=== PATIENT | male | born 1930 | race Caucasian/White ===

== ENCOUNTER 2019-01-16 19:25 | Emergency (ER) | payer OTHER ==
[2019-01-16] MEDS ORDERED: LIDOCAINE 2% MPF 5 ML VIAL ONE (19:42)
[2019-01-16] MEDS ORDERED: LIDOCAINE 1.5% W/EPI AMP 5 ML ONE (19:43)
[2019-01-16] MEDS ORDERED: FENTANYL CITR 100 MCG/2 ML ONE (19:45)
[2019-01-16 19:55] LABS: Absolute Lymphocytes (CBC) 1.6 K/uL (0.7-4.9); Absolute Monocytes 0.9 K/uL (0.1-1.3); Absolute Neutrophil 7.5 K/uL (1.8-8.0); Eosinophils % 1.5 % (0-4.4); Hematocrit 44.4 % (39.6-49.0); Lymphocytes % 15.4 % (15.3-44.8); MPV 9.3 fL (7.6-11.3); Monocytes % 8.6 % (3.3-12.3); RBC Red Blood Cell Count 4.85 M/uL (4.33-5.43)
[2019-01-16] MEDS ORDERED: ONDANSETRON 4 MG/2 ML VIAL ONE (19:58)
[2019-01-16 20:10] LABS: Potassium 4.1 mmol/L (3.5-5.1)
--- NOTE | 2019-01-16 20:24 | RAD REPORT ---
EXAM DESCRIPTION: CT - Head C Spine Cap W Con - 01/16/2019 8:10 pm CLINICAL HISTORY: Trauma, head and neck injury. Chest, abdomen and pelvis pain. fall, blood thinner, head max/fac COMPARISON: CT DISSECTION W WO CONTRAST dated 11/16/2012 TECHNIQUE: CT head without contrast. CT cervical spine without contrast with coronal and sagittal reformatted images. CT chest, abdomen and pelvis with IV contrast (approximately 100 mL nonionic IV contrast) with solis l and sagittal reformatted images of the spine. All CT scans are performed using dose optimization technique as appropriate and may include automated exposure control or mA/KV adjustment according to patient size. FINDINGS: CT HEAD WITHOUT CONTRAST: No intracranial hemorrhage, hydrocephalus or extra-axial fluid collection. Mild left periorbital soft tissue swelling. No areas of brain edema or midline shift. The paranasal sinuses and mastoids are clear. The calvarium is intact. CT CERVICAL SPINE WITHOUT CONTRAST: No fracture or subluxation. Moderate cervical degenerative change. The prevertebral soft tissues are normal in thickness. CT CHEST, ABDOMEN, PELVIS WITH CONTRAST: The lungs are clear.No pneumothorax or pericardial/pleural fluid. No evidence of intra-abdominal visceral injury, free fluid or free air. Atherosclerosis of the aorta and iliac vessels noted. Significant prostatic megaly. No fractures. IMPRESSION: Negative for acute traumatic findings.
--- NOTE | 2019-01-16 20:28 | RAD REPORT ---
EXAM DESCRIPTION: CT - FC CLINICAL HISTORY: FRACTURE Fall, trauma, facial pain COMPARISON: No comparisons TECHNIQUE: Axial 2 mm thick images of the face were obtained with sagittal and coronal reconstructio n images. All CT scans are performed using dose optimization technique as appropriate and may include automated exposure control or mA/KV adjustment according to patient size. FINDINGS: Soft tissue injuries are seen along the left aspect of the mandible, maxilla and left rayna orbital region. No acute facial bone fracture is seen.The mandible is intact. The globes and orbital contents are grossly unremarkable.The paranasal sinuses and mastoids are clear . IMPRESSION: Negative for facial bone fracture. Left-sided facial soft tissue injury noted as detailed.
--- NOTE | 2019-01-16 21:41 | ER ---
Nurse's Notes [facility] Name: Baldemar Key Jr Age: 88 yrs Sex: Male : 1930 Arrival Date: 01/16/2019 Time: 19:30 Bed 7 Private MD: Diagnosis: Fall;Left facial laceration;Facial contusion Presentation: 01/16 19:20 Presenting complaint: EMS states: that pt was walking outside and fell, hitting face on fc the curb. Has laceration to left upper lip which is uncontrolled and small lac under left eye. Unknown LOC. Care prior to arrival: Bleeding of injury uncontrolled. Mechanism of Injury: Fall from standing position. Trauma event details: Injury occurred in the [facility], Injury occurred: at home. Injury occurred: January 16, 2019. 19:20 Acuity: MEDARDO 2 19:20 Method Of Arrival: EMS: [facility] 19:20 Transition of care: patient was not received from another setting of care. Onset of symptoms was January 16, 2019. Risk Assessment: Do you want to hurt yourself or someone else? Patient reports no desire to harm self or others. Initial Sepsis Screen: Does the patient meet any 2 criteria? No. Patient's initial sepsis screen is negative. Does the patient have a suspected source of infection? No. Patient's initial sepsis screen is negative. Trauma Activation: Alert Physician: ED Physician; Name: Dr Randolph; Notified At: 19:19; Arrived At: 19:19 Physician: General Surgeon; Name: ; Notified At: 19:19; Arrived At: Physician: Radiology; Name: ; Notified At: 19:19; Arrived At: Physician: Respiratory; Name: Brenna; Notified At: 19:19; Arrived At: 19:19 Physician: Lab; Name: ; Notified At: 19:19; Arrived At: Historical: - Allergies: 19:44 No Known Allergies; fc - Home Meds: 19:44 Folbic 2.5-25-2 mg oral tab 1 tab 2 times per day [Active]; donepezil 10 mg oral tab 1 fc tab twice a day [Active]; memantine oral 28 mg oral 1 cap once daily [Active]; Plavix 75 mg Oral tab 1 tab once daily [Active]; Coreg 6.25 mg Oral tab 1 tab 2 times per day [Active]; levothyroxine 75 mcg tab 1 tab once daily [Active]; vitamin E 400 unit Oral cap daily [Active]; rosuvastatin 10 mg oral tab 1 tab once daily [Active]; - PMHx: 19:44 Hypertension; Dementia; High Cholesterol; Hypothyroidism; enlarged prostate; deaf; fc - PSHx: 19:44 Heart stents; fc - Immunization history: Last tetanus immunization: < 5 years ago. - Social history:: Smoking status: Patient/guardian denies using tobacco, Patient/guardian denies using alcohol, street drugs. - Ebola Screening: : Patient negative for fever greater than or equal to 101.5 degrees Fahrenheit, and additional compatible Ebola Virus Disease symptoms Patient denies exposure to infectious person Patient denies travel to an Ebola-affected area in the 21 days before illness onset. Screenin:20 Abuse screen: Denies threats or abuse. Tuberculosis screening: No symptoms or risk fc factors identified. 19:20 Nutritional screening: No deficits noted. Fall Risk None identified. fc Primary Survey: 19:20 NO uncontrolled hemorrhage observed. Breathing/Chest: Respiratory pattern: regular, ea Respiratory effort: spontaneous, unlabored. Circulation: Skin color: pink. Disability Alert. Exposure/Environment: All clothing and personal items were removed. There is evidence of uncontrolled external hemorrhage. Provider notified immediately. Methods to control bleeding applied. Obvious injury(ies) are noted at this time: avulsion to left side of upper lip A warming method has been applied: A warm blanket has been provided to the patient. 20:30 Reassessment Airway Airway Patent Breathing/Chest Respiratory pattern Regular ea Respiratory effort Spontaneous Unlabored Chest inspection Symmetrical Circulation Color [place] Temperature Warm Disability Alert. Assessment: 19:20 General: Appears uncomfortable, Behavior is calm, cooperative, appropriate for age. ea Pain: Complains of pain in mouth. Neuro: Level of Consciousness is awake, alert, obeys commands, Oriented to person, place, time, situation. Cardiovascular: Patient's skin is warm and dry. Respiratory: Airway is patent Respiratory effort is even, unlabored, Respiratory pattern is regular, symmetrical. Injury Description: Avulsion sustained to mouth is partial. 20:30 Reassessment: Patient and/or family updated on plan of care and expected duration. Pain ea level reassessed. Patient is alert, oriented x 3, equal unlabored respirations, skin warm/dry/pink. 21:30 Reassessment: Patient and/or family updated on plan of care and expected duration. Pain ea level reassessed. Patient is alert, oriented x 3, equal unlabored respirations, skin warm/dry/pink. Provider at bedside repairing laceration. Pt tolerating well. Vital Signs: 19:20 BP 180 / 83; Pulse 69; Resp 18; Temp 98.2(O); Pulse Ox 98% on R/A; Weight 72.57 kg (R); fc Height 6 ft. 0 in. (182.88 cm) (R); Pain 0/10; 20:10 BP 121 / 84; Pulse 80; Resp 18; Pulse Ox 99% on R/A; ea 21:00 BP 139 / 61; Pulse 73; Resp 18; Pulse Ox 96% on R/A; ea 21:30 BP 125 / 73; Pulse 75; Resp 18; Pulse Ox 97% on R/A; ea 22:21 BP 103 / 67; Pulse 72; Resp 18; Pulse Ox 95% on R/A; ea 23:01 BP 103 / 67; Pulse 72; Resp 17 S; Pulse Ox 95% on R/A; jd3 19:20 Body Mass Index 21.70 (72.57 kg, 182.88 cm) fc [place] Coma Score: 19:20 Eye Response: spontaneous(4). Verbal Response: oriented(5). Motor Response: obeys fc commands(6). Total: 15. Trauma Score (Adult): 19:20 Eye Response: spontaneous(1); Verbal Response: oriented(1); Motor Response: obeys fc commands(2); Systolic BP: > 89 mm Hg(4); Respiratory Rate: 10 to 29 per min(4); Eris Score: 15; Trauma Score: 12 ED Course: 19:20 Patient has correct armband on for positive identification. Bed in low position. Call fc light in reach. Side rails up X2. 19:20 Arm band placed on Patient placed in an exam room, on a stretcher. fc 19:20 Patient maintains SpO2 saturation greater than 95% on room air. Thermoregulation: warm ea blanket given to patient. 19:30 Patient arrived in ED. fc 19:34 Pierre Randolph MD is Attending Physician. ps1 19:38 Luba Hillman, RN is Primary Nurse. ea 19:38 Triage completed. fc 20:09 CT Traumagram (Head C Spine CAP W Con) In Process Unspecified. EDMS 20:09 CT Maxillofacial W/cont In Process Unspecified. EDMS 22:58 Assist provider with laceration repair on philtrum and upper vermilion border. IV jd3 discontinued, intact, bleeding controlled, No redness/swelling at site. Pressure dressing applied. Administered Medications: 19:38 Drug: fentaNYL (PF) 50 mcg Route: IVP; Site: right antecubital; ea 22:57 Follow up: Response: No adverse reaction jd3 19:40 Drug: Zofran 4 mg Route: IVP; Site: right antecubital; ea 22:57 Follow up: Response: No adverse reaction jd3 Intake: 23:00 PO: 0ml; Total: 0ml. jd3 Output: 23:00 Urine: 0ml; Total: 0ml. jd3 Outcome: 21:40 Discharge ordered by . ps1 22:59 Discharged to home via wheelchair, with family. jd3 22:59 Condition: stable 22:59 Discharge instructions given to patient, family, Instructed on discharge instructions, follow up and referral plans. medication usage, Demonstrated understanding of instructions, follow-up care, medications, Prescriptions given X 3. 22:59 Patient's length of stay in the Emergency Department was greater than 2 hours. diagnosticsPatient's length of stay extended due to 23:01 Patient left the ED. jd3 Signatures: Dispatcher [employer] EDDC Lilia Nava RN WANG Luba Hillman, RN Rony Jackson ea RN Pierre Chapa MD MD ps1
--- NOTE | 2019-01-16 21:41 | EDPHYS ---
Physician Documentation [facility] Name: Baldemar Key Jr Age: 88 yrs Sex: Male : 1930 Arrival Date: 01/16/2019 Time: 19:30 Bed 7 Private MD: ED Physician Pierre Randolph HPI: 01/16 19:42 This 88 yrs old Male presents to ER via EMS with complaints of Fall Injury. ps1 19:42 Patient BIBEMS 2/2 facial trauma. Unknown LOC but patient states that he remembers the ps1 dog tripping him up. Believed to have fallen down a couple of stairs outside. Has significant facial trauma with arteriolar bleeding from laceration of upper lip. On plavix. Contusion to left eye and periorbital area. Pain rated as moderate. . Historical: - Allergies: 19:44 No Known Allergies; fc - Home Meds: 19:44 Folbic 2.5-25-2 mg oral tab 1 tab 2 times per day [Active]; donepezil 10 mg oral tab 1 fc tab twice a day [Active]; memantine oral 28 mg oral 1 cap once daily [Active]; Plavix 75 mg Oral tab 1 tab once daily [Active]; Coreg 6.25 mg Oral tab 1 tab 2 times per day [Active]; levothyroxine 75 mcg tab 1 tab once daily [Active]; vitamin E 400 unit Oral cap daily [Active]; rosuvastatin 10 mg oral tab 1 tab once daily [Active]; - PMHx: 19:44 Hypertension; Dementia; High Cholesterol; Hypothyroidism; enlarged prostate; deaf; fc - PSHx: 19:44 Heart stents; fc - Immunization history: Last tetanus immunization: < 5 years ago. - Social history:: Smoking status: Patient/guardian denies using tobacco, Patient/guardian denies using alcohol, street drugs. - Ebola Screening: : Patient negative for fever greater than or equal to 101.5 degrees Fahrenheit, and additional compatible Ebola Virus Disease symptoms Patient denies exposure to infectious person Patient denies travel to an Ebola-affected area in the 21 days before illness onset. ROS: 19:42 Constitutional: Negative for fever, chills, and weight loss, Eyes: Negative for injury, ps1 pain, redness, and discharge, Cardiovascular: Negative for chest pain, palpitations, and edema, Respiratory: Negative for shortness of breath, cough, wheezing, and pleuritic chest pain, Abdomen/GI: Negative for abdominal pain, nausea, vomiting, diarrhea, and constipation, MS/Extremity: Negative for injury and deformity, Neuro: Negative for headache, weakness, numbness, tingling, and seizure, Psych: Negative for depression, anxiety, suicide ideation, homicidal ideation, and hallucinations. 19:42 ENT: Positive for injury or acute deformity, contusion, laceration, of the left cheek, left eye and mouth. Exam: 19:42 Constitutional: This is a well developed, well nourished patient who is awake, alert, ps1 and in no acute distress. Cardiovascular: Regular rate and rhythm. No gallops, murmurs, or rubs. Normal PMI, no JVD. No pulse deficits. Respiratory: Lungs have equal breath sounds bilaterally, clear to auscultation and percussion. No rales, rhonchi or wheezes noted. No increased work of breathing, no retractions or nasal flaring. Abdomen/GI: Soft, non-tender, with normal bowel sounds. No distension or tympany. No guarding or rebound. No evidence of tenderness throughout. Male : Normal genitalia with no discharge or lesions. Skin: Warm, dry with normal turgor. Normal color with no rashes, no lesions, and no evidence of cellulitis. MS/ Extremity: Pulses equal, no cyanosis. Neurovascular intact. Full, normal range of motion. Neuro: Awake and alert, GCS 15, oriented to person, place, time, and situation. Cranial nerves II-XII grossly intact. Sensory grossly intact. Psych: Awake, alert, with orientation to person, place and time. Behavior, mood, and affect are within normal limits. 19:42 Head/face: Noted is no obvious of injury or deformity except ecchymosis, that is moderate, of the left cheek and left eye, a laceration(s), that is deep, 4 cm(s), of the mouth. Vital Signs: 19:20 BP 180 / 83; Pulse 69; Resp 18; Temp 98.2(O); Pulse Ox 98% on R/A; Weight 72.57 kg (R); fc Height 6 ft. 0 in. (182.88 cm) (R); Pain 0/10; 20:10 BP 121 / 84; Pulse 80; Resp 18; Pulse Ox 99% on R/A; ea 21:00 BP 139 / 61; Pulse 73; Resp 18; Pulse Ox 96% on R/A; ea 21:30 BP 125 / 73; Pulse 75; Resp 18; Pulse Ox 97% on R/A; ea 22:21 BP 103 / 67; Pulse 72; Resp 18; Pulse Ox 95% on R/A; ea 23:01 BP 103 / 67; Pulse 72; Resp 17 S; Pulse Ox 95% on R/A; jd3 19:20 Body Mass Index 21.70 (72.57 kg, 182.88 cm) fc [place] Coma Score: 19:20 Eye Response: spontaneous(4). Verbal Response: oriented(5). Motor Response: obeys fc commands(6). Total: 15. Trauma Score (Adult): 19:20 Eye Response: spontaneous(1); Verbal Response: oriented(1); Motor Response: obeys fc commands(2); Systolic BP: > 89 mm Hg(4); Respiratory Rate: 10 to 29 per min(4); Eris Score: 15; Trauma Score: 12 MDM: 19:53 Patient medically screened. ps1 01/16 19:37 Order name: Basic Metabolic Panel; Complete Time: 20:18 ps1 01/16 19:37 Order name: CBC with Diff; Complete Time: 20:18 ps1 01/16 19:37 Order name: CT Traumagram (Head C Spine CAP W Con); Complete Time: 21:08 ps1 01/16 19:37 Order name: Creatinine for Radiology; Complete Time: 20:18 ps1 01/16 19:37 Order name: Type And Screen; Complete Time: 21:08 ps1 01/16 19:37 Order name: CT Maxillofacial W/cont; Complete Time: 21:08 ps1 01/16 19:37 Order name: Labs collected and sent; Complete Time: 20:15 ps1 Administered Medications: 19:38 Drug: fentaNYL (PF) 50 mcg Route: IVP; Site: right antecubital; ea 22:57 Follow up: Response: No adverse reaction jd3 19:40 Drug: Zofran 4 mg Route: IVP; Site: right antecubital; ea 22:57 Follow up: Response: No adverse reaction jd3 Disposition: 01/16/19 21:40 Discharged to Home. Impression: Fall, Left facial laceration, Facial contusion. - Condition is Stable. - Discharge Instructions: Facial or Scalp Contusion, Facial Laceration. - Prescriptions for Anaprox DS 550 mg Oral Tablet - take 1 tablet by ORAL route every 12 hours As needed; 20 tablet. Robaxin 500 mg Oral Tablet - take 2 tablet by ORAL route every 6 hours As needed; 40 tablet. Medrol (Jose) 4 mg Oral Tablets, Dose Pack - take 1 tablet by ORAL route as directed - follow package instructions; 1 packet. - Medication Reconciliation Form, Thank You Letter, Antibiotic Education, Prescription Opioid Use form. - Follow up: Private Physician; When: 7 - 10 days; Reason: Staple/Suture removal. Follow up: Emergency Department; When: As needed; Reason: Worsening of condition. - Problem is new. - Symptoms have improved. Signatures: Dispatcher [employer] EDMS Lilia Nava RN RN Luba Gipson RN RN ea Davies, Jonathon, RN RN jd3 Pierre Randolph MD MD ps1 Corrections: (The following items were deleted from the chart) 23:01 21:40 01/16/2019 21:40 Discharged to Home. Impression: Fall; Left facial laceration; jd3 Facial contusion. Condition is Stable. Forms are Medication Reconciliation Form, Thank You Letter, Antibiotic Education, Prescription Opioid Use. Follow up: Private Physician; When: 7 - 10 days; Reason: Staple/Suture removal. Follow up: Emergency Department; When: As needed; Reason: Worsening of condition. Problem is new. Symptoms have improved. ps1
[2019-01-16] MEDS ORDERED: HYDROCODONE/APAP 7.5/325 MG TAB ONE (22:28)
[2019-01-16 23:10] VITALS: BP 103/67; O2SAT 95
== END 2019-01-16 23:01 | disposition home or self-care (01) ==
LOC: ER 19:25
PROC: 0CQ0XZZ Repair Upper Lip, External Approach (ICD-10-PCS; principal; 2019-01-16)
DX: S01.511A Laceration without foreign body of lip, initial encounter (principal); S00.83XA Contusion of other part of head, initial encounter; I10 Essential (primary) hypertension; E78.00 Pure hypercholesterolemia, unspecified; E03.9 Hypothyroidism, unspecified; F03.90 Unspecified dementia, unspecified severity, without behavioral disturbance, psychotic disturbance, mood disturbance, and anxiety; Z95.818 Presence of other cardiac implants and grafts; Z79.01 Long term (current) use of anticoagulants; W01.0XXA Fall on same level from slipping, tripping and stumbling without subsequent striking against object, initial encounter; Y93.01 Activity, walking, marching and hiking; Y92.89 Other specified places as the place of occurrence of the external cause
CPT/HCPCS: 85025; 80048; 36415; 86900; 86850; 86901; 70450; 72125; 71260; 70487; 74177; 96375; 96374; 99284; 12013; Q9967; J3010; J2001; J2405

== ENCOUNTER 2019-01-18 12:27 | Emergency (ER) | payer OTHER ==
--- NOTE | 2019-01-18 14:09 | EDPHYS ---
Physician Documentation [facility] Name: Baldemar Key Jr Age: 88 yrs Sex: Male : 1930 Arrival Date: 01/18/2019 Time: 12:29 Bed 12 Private MD: Scarlett Payan C ED Physician Troy Ellison HPI: 01/18 14:04 This 88 yrs old Male presents to ER via Ambulatory with complaints of Suture jody Recheck. 14:04 Patient presents to ED for recheck of: laceration. The affected area is on the face. jody Previous treatment: The patient was initially treated 3 day(s) ago. Progress: The patient reports no change in. The patient has not experienced similar symptoms in the past. - Immunization history:: Adult Immunizations up to date. - Social history:: Smoking status: Patient/guardian denies using tobacco. - Ebola Screening: : No symptoms or risks identified at this time. ROS: 14:05 Constitutional: Negative for fever, chills, and weight loss, Eyes: Negative for injury, jody pain, redness, and discharge, ENT: Negative for injury, pain, and discharge, Neck: Negative for injury, pain, and swelling, Cardiovascular: Negative for chest pain, palpitations, and edema, Respiratory: Negative for shortness of breath, cough, wheezing, and pleuritic chest pain, Abdomen/GI: Negative for abdominal pain, nausea, vomiting, diarrhea, and constipation, Back: Negative for injury and pain, : Negative for injury, bleeding, discharge, and swelling, MS/Extremity: Negative for injury and deformity, Neuro: Negative for headache, weakness, numbness, tingling, and seizure, Psych: Negative for depression, anxiety, suicide ideation, homicidal ideation, and hallucinations, Allergy/Immunology: Negative for hives, rash, and allergies, Endocrine: Negative for neck swelling, polydipsia, polyuria, polyphagia, and marked weight changes, Hematologic/Lymphatic: Negative for swollen nodes, abnormal bleeding, and unusual bruising. 14:05 Skin: Positive for discoloration, ecchymosis, erythema, laceration(s), of the face. Exam: 14:05 Constitutional: This is a well developed, well nourished patient who is awake, alert, jody and in no acute distress. Eyes: Pupils equal round and reactive to light, extra-ocular motions intact. Lids and lashes normal. Conjunctiva and sclera are non-icteric and not injected. Cornea within normal limits. Periorbital areas with no swelling, redness, or edema. ENT: Nares patent. No nasal discharge, no septal abnormalities noted. Tympanic membranes are normal and external auditory canals are clear. Oropharynx with no redness, swelling, or masses, exudates, or evidence of obstruction, uvula midline. Mucous membranes moist. Neck: Trachea midline, no thyromegaly or masses palpated, and no cervical lymphadenopathy. Supple, full range of motion without nuchal rigidity, or vertebral point tenderness. No Meningismus. Chest/axilla: Normal chest wall appearance and motion. Nontender with no deformity. No lesions are appreciated. Cardiovascular: Regular rate and rhythm with a normal S1 and S2. No gallops, murmurs, or rubs. Normal PMI, no JVD. No pulse deficits. Respiratory: Lungs have equal breath sounds bilaterally, clear to auscultation and percussion. No rales, rhonchi or wheezes noted. No increased work of breathing, no retractions or nasal flaring. Abdomen/GI: Soft, non-tender, with normal bowel sounds. No distension or tympany. No guarding or rebound. No evidence of tenderness throughout. Back: No spinal tenderness. No costovertebral tenderness. Full range of motion. Skin: Warm, dry with normal turgor. Normal color with no rashes, no lesions, and no evidence of cellulitis. MS/ Extremity: Pulses equal, no cyanosis. Neurovascular intact. Full, normal range of motion. Neuro: Awake and alert, GCS 15, oriented to person, place, time, and situation. Cranial nerves II-XII grossly intact. Motor strength 5/5 in all extremities. Sensory grossly intact. Cerebellar exam normal. Normal gait. Psych: Awake, alert, with orientation to person, place and time. Behavior, mood, and affect are within normal limits. 14:05 Head/face: Noted is abrasion(s), contusion, erythema, a laceration(s), swelling, that is moderate, of the forehead, right eye, nose, mouth and chin. Vital Signs: 12:39 BP 149 / 98; Pulse 88; Resp 16; Temp 97.2; Pulse Ox 100% on R/A; Pain 0/10; hb MDM: 13:17 Patient medically screened. [facility] 14:07 Data reviewed: vital signs, nurses notes. [facility] Administered Medications: 14:23 Drug: KeFLEX 500 mg Route: PO; iw 14:23 Drug: Bactroban Ointment 2 % 1 application Route: Topical; Site: affected area; iw Disposition: 01/18/19 14:08 Discharged to Home. Impression: Laceration without foreign body of other part of head - face. - Condition is Stable. - Discharge Instructions: Mouth Laceration, Facial Laceration, Mouth Laceration, [id number], Facial Laceration, [id number]. - Prescriptions for Bactroban 2 % Topical Ointment - Apply to affected area 1 application by TOPICAL route every 12 hours; 30 gram. Keflex 500 mg Oral Capsule - take 1 capsule by ORAL route every 6 hours for 10 days; 40 capsule. - Medication Reconciliation Form, Thank You Letter, Antibiotic Education, Prescription Opioid Use form. - Follow up: Scarlett Payan MD; When: 5 - 6 days; Reason: Recheck today's complaints, Continuance of care, Re-evaluation by your physician. - Problem is new. - Symptoms have improved. Signatures: Troy Ellison MD MD cha Williams, Irene, RN RN Maribeth Soria RN RN Corrections: (The following items were deleted from the chart) 14:23 14:08 01/18/2019 14:08 Discharged to Home. Impression: Laceration without foreign body iw of other part of head - face. Condition is Stable. Forms are Medication Reconciliation Form, Thank You Letter, Antibiotic Education, Prescription Opioid Use. Follow up: Scarlett Payan; When: 5 - 6 days; Reason: Recheck today's complaints, Continuance of care, Re-evaluation by your physician. Problem is new. Symptoms have improved. [facility]
--- NOTE | 2019-01-18 14:09 | ER ---
Nurse's Notes [facility] Name: Baldemar Key Jr Age: 88 yrs Sex: Male : 1930 Arrival Date: 01/18/2019 Time: 12:29 Bed 12 Private MD: Scarlett Payan C Diagnosis: Laceration without foreign body of other part of head-face Presentation: 01/18 12:37 Presenting complaint: Pt was here 2 days ago after fall, laceration to face and lip, hb concerned suture on lip fell out. Transition of care: patient was not received from another setting of care. Onset of symptoms was January 18, 2019. Risk Assessment: Do you want to hurt yourself or someone else? Patient reports no desire to harm self or others. Care prior to arrival: None. 12:37 Method Of Arrival: Ambulatory hb 12:37 Acuity: MEDARDO 4 hb 13:30 Initial Sepsis Screen: Does the patient meet any 2 criteria? No. Patient's initial iw sepsis screen is negative. Does the patient have a suspected source of infection? No. Patient's initial sepsis screen is negative. Triage Assessment: 14:20 General: Appears in no apparent distress. Behavior is calm, cooperative. iw - Immunization history:: Adult Immunizations up to date. - Social history:: Smoking status: Patient/guardian denies using tobacco. - Ebola Screening: : No symptoms or risks identified at this time. Screenin:20 Abuse screen: Denies threats or abuse. Denies injuries from another. Nutritional iw screening: No deficits noted. Tuberculosis screening: No symptoms or risk factors identified. Fall Risk None identified. Assessment: 13:30 General: Appears in no apparent distress. Behavior is calm. Pain: Denies pain. Neuro: iw Level of Consciousness is awake, alert, Moves all extremities. Cardiovascular: Patient's skin is warm and dry. Respiratory: Respiratory effort is even, unlabored, Respiratory pattern is regular. Derm: Skin is fragile, is thin. Musculoskeletal: Range of motion: intact in all extremities. Injury Description: Laceration sustained to lower lip. Vital Signs: 12:39 BP 149 / 98; Pulse 88; Resp 16; Temp 97.2; Pulse Ox 100% on R/A; Pain 0/10; hb ED Course: 12:29 Patient arrived in ED. as 12:30 Scarlett Payan MD is Private Physician. as 12:39 Triage completed. hb 12:39 Arm band placed on. hb 13:16 Bhavani Peña, RN is Primary Nurse. iw 13:17 Troy Ellison MD is Attending Physician. jody 13:30 Patient has correct armband on for positive identification. iw 14:07 Scarlett Payan MD is Referral Physician. jody 14:20 No provider procedures requiring assistance completed. Patient did not have IV access iw during this emergency room visit. Administered Medications: 14:23 Drug: KeFLEX 500 mg Route: PO; iw 14:23 Drug: Bactroban Ointment 2 % 1 application Route: Topical; Site: affected area; iw Outcome: 14:08 Discharge ordered by MD. jody 14:22 Discharged to home ambulatory, with family. iw 14:22 Condition: good 14:22 Discharge instructions given to patient, Instructed on discharge instructions, Demonstrated understanding of instructions, follow-up care, medications, Prescriptions given X 2. 14:23 Patient left the ED. iw Signatures: Troy Ellison MD MD cha Martinez, Amelia as Bhvaani Peña, WANG RN Maribeth Soria RN RN hb Corrections: (The following items were deleted from the chart) 20:23 14:22 Discharge instructions given to patient, Instructed on discharge instructions, iw Demonstrated understanding of instructions, follow-up care, medications, Prescriptions given X 1, iw
[2019-01-18] MEDS ORDERED: CEPHALEXIN 250 MG CAP ONE (14:24)
[2019-01-18] MEDS ORDERED: MUPIROCIN 2% OINT 22GM TUBE TOP ONE (14:25)
[2019-01-18 14:27] VITALS: BP 149/98; TEMP 97.2; O2SAT 100
== END 2019-01-18 14:23 | disposition home or self-care (01) ==
LOC: ER 12:27
DX: S01.81XD Laceration without foreign body of other part of head, subsequent encounter (principal)
CPT/HCPCS: 99283

== ENCOUNTER 2019-09-03 15:23 | Emergency (ER) | payer OTHER ==
--- NOTE | 2019-09-03 16:04 | RAD REPORT ---
EXAM DESCRIPTION: CT - CTHCSPWOC - 09/03/2019 3:52 pm CLINICAL HISTORY: Trauma, head and neck injury. PAIN COMPARISON: No comparisons TECHNIQUE: Axial 5 mm thick images of the head were obtained. Axial 2 mm thick images of the cervical spine were obtained with sagittal and coronal reconstruction images generated and reviewed. All CT scans are performed using dose optimization technique as appropriate and may include automated exposure control or mA/KV adjustment according to patient size. FINDINGS: CT HEAD WITHOUT CONTRAST: No acute hemorrhage, hydrocephalus or extra-axial collection is identified.Moderate generalized brain atrophy is present with mild periventricular and deep white matter chronic microvascular ischemic ch anges.No areas of brain edema or midline shift. The paranasal sinuses and mastoids are clear.Soft tissue swelling is seen about the nose with a displ aced left nasal bone fracture.The calvarium is intact. CT CERVICAL SPINE WITHOUT CONTRAST: No fracture or subluxation.Multilevel degenerative change involving the cervical spine.No prevertebra l soft tissues swelling is identified. Carotid atherosclerosis. IMPRESSION: No acute intracranial or cervical spine findings. Left nasal bone fracture seen, please refer to dedicated CT face study for further assessment.
--- NOTE | 2019-09-03 16:11 | RAD REPORT ---
EXAM DESCRIPTION: CT - CTFB CLINICAL HISTORY: FACIAL PAIN Trauma, facial pain and swelling. COMPARISON: <Comparisons> TECHNIQUE: Axial 2 mm thick images of the face were obtained with sagittal and coronal reconstructio n images. All CT scans are performed using dose optimization technique as appropriate and may include automated exposure control or mA/KV adjustment according to patient size. FINDINGS: Mildly comminuted fracture of the nasal bone is seen on the left with adjacent soft tissue swelling.The mandible is intact. The globes and orbital contents are grossly unremarkable.The paranasal sinuses and mastoids are clear . IMPRESSION: Acute nasal bone fracture with mild displacement.
[2019-09-03] MEDS ORDERED: LIDOCAINE 1% W/EPI 1:100,000 MDV 20 ML VIAL ONE (16:53)
[2019-09-03] MEDS ORDERED: DERMABOND SKIN ADHESIVE TOP ONE (17:34)
--- NOTE | 2019-09-03 17:43 | EDPHYS ---
Physician Documentation [facility] Name: Baldemar Key Jr Age: 89 yrs Sex: Male : 1930 Arrival Date: 09/03/2019 Time: 15:24 Bed 18 Private MD: Scarlett Payan C ED Physician Taran Anand HPI: 09/03 16:14 This 89 yrs old Male presents to ER via Wheelchair with complaints of jr8 Laceration To Head, Fall Injury. 16:14 The patient has a laceration related to: falling from a standing position, occurred at [facility], and there are no complicating factors. The injury was accidental. The laceration(s) is(are) located on the face. Onset: The symptoms/episode began/occurred acutely, today. Associated signs and symptoms: The patient has no apparent associated signs or symptoms. The patient has experienced a previous episode. The patient has not recently seen a physician. Patient stated that he slipped on rock in driveway. Fell hitting face and head. Lacerations to nasal bridge and forehead. Denies LOC. Denies Pain anywhere else. Patient A\T\O x 4. Historical: - Allergies: 15:32 No Known Allergies; la1 - PMHx: 15:32 Deaf; Dementia; enlarged prostate; High Cholesterol; Hypertension; Hypothyroidism; la1 - Immunization history:: Adult Immunizations up to date. - Social history:: Smoking status: Patient/guardian denies using tobacco. - Immunization history: Last tetanus immunization: - up to date. - Ebola Screening: : No symptoms or risks identified at this time. ROS: 16:14 Constitutional: Negative for fever, chills, and weight loss. jr8 16:14 Skin: Positive for laceration(s), of the face and nose. 16:14 All other systems are negative. Exam: 16:14 Eyes: Pupils equal round and reactive to light, extra-ocular motions intact. Lids and jr8 lashes normal. Conjunctiva and sclera are non-icteric and not injected. Cornea within normal limits. Periorbital areas with no swelling, redness, or edema. Neck: Trachea midline, no thyromegaly or masses palpated, and no cervical lymphadenopathy. Supple, full range of motion without nuchal rigidity, or vertebral point tenderness. No Meningismus. Cardiovascular: Regular rate and rhythm with a normal S1 and S2. No gallops, murmurs, or rubs. Normal PMI, no JVD. No pulse deficits. Respiratory: Lungs have equal breath sounds bilaterally, clear to auscultation and percussion. No rales, rhonchi or wheezes noted. No increased work of breathing, no retractions or nasal flaring. Abdomen/GI: Soft, non-tender, with normal bowel sounds. No distension or tympany. No guarding or rebound. No evidence of tenderness throughout. Back: No spinal tenderness. No costovertebral tenderness. Full range of motion. Skin: Warm, dry with normal turgor. Normal color with no rashes, no lesions, and no evidence of cellulitis. MS/ Extremity: Pulses equal, no cyanosis. Neurovascular intact. Full, normal range of motion. Neuro: Awake and alert, GCS 15, oriented to person, place, time, and situation. Cranial nerves II-XII grossly intact. Motor strength 5/5 in all extremities. Sensory grossly intact. Cerebellar exam normal. Normal gait. 16:14 Head/face: Noted is a laceration(s), that is deep, that is jagged, 2 cm(s), of the forehead. 16:14 ENT: Exam is negative for earache, ear discharge, hemotympanum, TM abnormalities, nasal discharge, septal hematoma, sinus tenderness, Nose: External nose: contusion is noted, laceration is present, approximately 1.5 cm(s), Mouth: Lips: moist, Oral mucosa: pink and intact, moist, Gums: pink, Tongue: is moist, Posterior pharynx: Airway: patent, Tonsils: are normal in appearance, Uvula: midline, swelling, is not appreciated. Vital Signs: 15:30 BP 189 / 89; Pulse 66; Resp 16; Temp 97.9; Pulse Ox 97% ; Weight 81.65 kg; bp 16:30 BP 150 / 78; Pulse 57; Resp 16; Pulse Ox 97% ; bp Eris Coma Score: 15:30 Eye Response: spontaneous(4). Verbal Response: confused(4). Motor Response: obeys bp commands(6). Total: 14. Trauma Score (Adult): 15:30 Eye Response: spontaneous(1); Verbal Response: confused(1); Motor Response: obeys bp commands(2); Systolic BP: > 89 mm Hg(4); Respiratory Rate: 10 to 29 per min(4); Eris Score: 14; Trauma Score: 12 Laceration: 17:40 Wound Repair of 2.5cm ( 1.0in ) subcutaneous laceration to forehead. Distal jr8 neuro/vascular/tendon intact. Anesthesia: Local anesthetic administered with 2 mls of 1% lidocaine w/ Epi. Wound prep: Extensive cleansing with betadine, Wound irrigation with saline, Wound explored extensively. Skin closed with 4 4-0 Prolene using interrupted sutures and sterile technique. Patient tolerated well. 17:40 Wound Repair of 1.5cm ( 0.6in ) subcutaneous laceration to nose. Distal jr8 neuro/vascular/tendon intact. Wound prep: Extensive cleansing with hibiclenz, Wound explored extensively. Skin closed with 1 thin layer Adhesive skin closure using Dermabond. Patient tolerated well. MDM: 15:48 Patient medically screened. jr8 17:40 Data reviewed: vital signs, nurses notes, and as a result, I will discharge patient. jr8 Data reviewed: radiologic studies, CT scan. Data interpreted: Pulse oximetry: on room air is 97 %. Interpretation: normal. Counseling: I had a detailed discussion with the patient and/or guardian regarding: the historical points, exam findings, and any diagnostic results supporting the discharge/admit diagnosis, radiology results, the need for outpatient follow up, a family practitioner, to return to the emergency department if symptoms worsen or persist or if there are any questions or concerns that arise at home. 09/03 15:37 Order name: CT Facial Bones W/O Con; Complete Time: 16:39 bp 09/03 15:48 Order name: Head C Spine Mpr Wo Con; Complete Time: 16:08 EDMS Administered Medications: 18:08 Drug: [place] (7.5 mg-325 mg) 1 tabs Route: PO; bp 18:15 Follow up: Response: Medication administered at discharge. bp Disposition: 09/04 07:08 Co-signature as Attending Physician, Taran Anand MD. rn Disposition: 09/03/19 17:42 Discharged to Home. Impression: Laceration without foreign body of nose, Laceration face. - Condition is Stable. - Discharge Instructions: Tissue Adhesive Wound Care, Facial Laceration. - Prescriptions for Keflex 500 mg Oral Capsule - take 1 capsule by ORAL route every 8 hours for 5 days; 15 capsule. - Medication Reconciliation Form, Thank You Letter, Antibiotic Education, Prescription Opioid Use form. - Follow up: Scarlett Payan MD; When: 1 week; Reason: Wound Recheck, Recheck today's complaints, Continuance of care, Staple/Suture removal, Re-evaluation by your physician. - Problem is new. - Symptoms have improved. Signatures: Dispatcher [employer] EDSC Taran Anand MD MD rn John Irby PA PA jr8 Donte Oglesby RN RN la1 Maribeth Soria, RN RN hb Ranulfo Trujillo, RN RN bp Corrections: (The following items were deleted from the chart) 09/03 15:48 15:36 Head Brain Wo Cont+CT.RAD.BRZ ordered. [facility]SC 18:08 17:42 09/03/2019 17:42 Discharged to Home. Impression: Laceration without foreign body bp of nose; Laceration face. Condition is Stable. Forms are Medication Reconciliation Form, Thank You Letter, Antibiotic Education, Prescription Opioid Use. Follow up: Scarlett Payan; When: 1 week; Reason: Wound Recheck, Recheck today's complaints, Continuance of care, Staple/Suture removal, Re-evaluation by your physician. Problem is new. Symptoms have improved. jr8
--- NOTE | 2019-09-03 17:43 | ER ---
Nurse's Notes [facility] Name: Baldemar Key Jr Age: 89 yrs Sex: Male : 1930 Arrival Date: 09/03/2019 Time: 15:24 Bed 18 Private MD: Scarlett Payan C Diagnosis: Laceration without foreign body of nose;Laceration face Presentation: 09/03 15:30 Presenting complaint: Patient states: I tripped in the driveway and hit my face on the la1 concrete, laceration noted to face with moderate bleeding. Negative LOC, unknown blood thinner use. Transition of care: patient was not received from another setting of care. Complicating Factors: There are no complicating factors for this patient. Onset of symptoms was September 03, 2019. Risk Assessment: Do you want to hurt yourself or someone else? Patient reports no desire to harm self or others. Initial Sepsis Screen: Does the patient meet any 2 criteria? No. Patient's initial sepsis screen is negative. Does the patient have a suspected source of infection? No. Patient's initial sepsis screen is negative. Care prior to arrival: None. 15:30 Method Of Arrival: Wheelchair la1 15:30 Acuity: MEDARDO 2 la1 15:30 Mechanism of Injury: Fall from standing position. Trauma event details: Injury occurred in the [facility], Injury occurred: at home. Injury occurred: September 03, 2019 Injury occurred at: 15:00. Triage Assessment: 15:41 Injury Description: Laceration sustained to face is bleeding moderately. bp Trauma Activation: Consult Physician: ED Physician; Name: ; Notified At: ; Arrived At: Physician: General Surgeon; Name: ; Notified At: ; Arrived At: Physician: Radiology; Name: ; Notified At: ; Arrived At: Physician: Respiratory; Name: ; Notified At: ; Arrived At: Physician: Lab; Name: ; Notified At: ; Arrived At: Historical: - Allergies: 15:32 No Known Allergies; la1 - PMHx: 15:32 Deaf; Dementia; enlarged prostate; High Cholesterol; Hypertension; Hypothyroidism; la1 - Immunization history:: Adult Immunizations up to date. - Social history:: Smoking status: Patient/guardian denies using tobacco. - Immunization history: Last tetanus immunization: - up to date. - Ebola Screening: : No symptoms or risks identified at this time. Screenin:30 Abuse screen: Denies threats or abuse. Denies injuries from another. Tuberculosis bp screening: No symptoms or risk factors identified. 15:30 Nutritional screening: No deficits noted. bp 18:14 Fall Risk Fall in past 12 months (25 points). bp Primary Survey: 15:30 NO uncontrolled hemorrhage observed. A: The patient is alert. Airway: patent, No bp supplemental oxygen in use on arrival. Breathing/Chest: Respiratory pattern: regular, Respiratory effort: spontaneous, unlabored. Circulation: Skin color: pink, Skin temperature: warm, dry. Disability Alert. Exposure/Environment: All clothing and personal items were removed. Forensic evidence collection is not deemed to be indicated at this time. Items placed in patient belonging bag. There is no evidence of uncontrolled external bleeding. Obvious injury(ies) are noted at this time: MID BROW LAC A warming method has been applied: A warm blanket has been provided to the patient. 18:13 Reassessment Airway Airway Breathing/Chest Respiratory pattern Regular Respiratory bp effort Spontaneous Unlabored. Secondary Survey: 15:30 HEENT: Face Other MID BROW LAC. bp Assessment: 15:30 General: Appears in no apparent distress. comfortable, well groomed, Behavior is bp cooperative, anxious. Pain: Unable to use pain scale. Does not appear to understand pain scale. Neuro: Level of Consciousness is awake, confused, Oriented to person. EENT: NASAL BRIDGE SWELLING. Cardiovascular: No deficits noted. Respiratory: No deficits noted. GI: No signs and/or symptoms were reported involving the gastrointestinal system. : No signs and/or symptoms were reported regarding the genitourinary system. Derm: No deficits noted. Musculoskeletal: No deficits noted. Injury Description: Laceration sustained to face. 15:30 Injury Description: Laceration is jagged, 2.6 to 7.5 cm long, bleeding moderately. bp 15:59 Reassessment: PT RETURNED FROM CT. bp 16:42 Reassessment: BLEEDING CONTROLLED, ALL CURRENT ORDERS COMPLETED. VS STABLE. bp Vital Signs: 15:30 BP 189 / 89; Pulse 66; Resp 16; Temp 97.9; Pulse Ox 97% ; Weight 81.65 kg; bp 16:30 BP 150 / 78; Pulse 57; Resp 16; Pulse Ox 97% ; bp Eris Coma Score: 15:30 Eye Response: spontaneous(4). Verbal Response: confused(4). Motor Response: obeys bp commands(6). Total: 14. Trauma Score (Adult): 15:30 Eye Response: spontaneous(1); Verbal Response: confused(1); Motor Response: obeys bp commands(2); Systolic BP: > 89 mm Hg(4); Respiratory Rate: 10 to 29 per min(4); Eris Score: 14; Trauma Score: 12 ED Course: 15:24 Patient arrived in ED. as 15:25 Scarlett Payan MD is Private Physician. as 15:26 Ranulfo Trujillo, WANG is Primary Nurse. bp 15:30 Patient has correct armband on for positive identification. Bed in low position. Call bp light in reach. Side rails up X2. Adult w/ patient. 15:31 Triage completed. la1 15:32 Arm band placed on left wrist. la1 15:35 John Irby PA is PHCP. hb 15:50 CT completed. Patient tolerated procedure well. Patient moved to CT via stretcher. nj Patient moved back from CT. 15:54 CT Facial Bones W/O Con In Process Unspecified. EDMS 15:54 Head C Spine Mpr Wo Con In Process Unspecified. EDMS 16:19 Taran Anand MD is Attending Physician. jr8 17:42 Scarlett Payan MD is Referral Physician. jr8 18:12 Assist provider with laceration repair on forehead that was between 2.6 to 7.5 cm using bp sutures. Set up tray. Performed by John MCGRATH Patient tolerated well. Patient did not have IV access during this emergency room visit. 18:13 Patient maintains SpO2 saturation greater than 95% on room air. Thermoregulation: warm bp blanket given to patient. Administered Medications: 18:08 Drug: [place] (7.5 mg-325 mg) 1 tabs Route: PO; bp 18:15 Follow up: Response: Medication administered at discharge. bp Intake: 15:30 PO: 0ml; Total: 0ml. bp Output: 15:30 Urine: 0ml; Total: 0ml. bp Outcome: 17:42 Discharge ordered by . jr8 18:08 Patient left the ED. bp 18:14 Discharged to home via wheelchair, with family. bp 18:14 Condition: stable 18:14 Patient's length of stay in the Emergency Department was greater than 2 hours. Patient's length of stay was extended due to staffing issues within the emergency department. 18:15 Discharge instructions given to patient, family, Instructed on discharge instructions, bp follow up and referral plans. medication usage, wound care, Demonstrated understanding of instructions, follow-up care, medications, wound care, Prescriptions given X 1. Signatures: Dispatcher [employer] EDNH Eneida Epps Josh, PA PA jr8 Donte Oglesby RN RN la1 Maribeth Soria, RN RN Félix Zayas Brian, RN RN bp
[2019-09-03] MEDS ORDERED: HYDROCODONE/APAP 7.5/325 MG TAB ONE (18:01)
[2019-09-03 18:16] VITALS: TEMP 97.9; O2SAT 97
[2019-09-03 18:19] VITALS: BP 150/78
== END 2019-09-03 18:08 | disposition home or self-care (01) ==
LOC: ER 15:23
PROC: 0JQ10ZZ Repair Face Subcutaneous Tissue and Fascia, Open Approach (ICD-10-PCS; principal; 2019-09-03)
PROC: 09QKXZZ Repair Nasal Mucosa and Soft Tissue, External Approach (ICD-10-PCS; 2019-09-03)
DX: S01.21XA Laceration without foreign body of nose, initial encounter (principal); S01.81XA Laceration without foreign body of other part of head, initial encounter; W01.0XXA Fall on same level from slipping, tripping and stumbling without subsequent striking against object, initial encounter; Y93.9 Activity, unspecified; Y92.9 Unspecified place or not applicable
CPT/HCPCS: 70450; 70486; 72125; 76377; 99285

== ENCOUNTER 2021-01-07 12:42 | Inpatient (IN) | payer OTHER ==
--- NOTE | 2021-01-07 13:47 | RAD REPORT ---
EXAM DESCRIPTION: CT - Head Brain Wo Cont - 01/07/2021 1:25 pm CLINICAL HISTORY: DECLINING STATE Headache, drowsiness COMPARISON: Facial Bones W/ Mpr dated 09/03/2019 TECHNIQUE: All CT scans are performed using dose optimization technique as appropriate and may inclu de automated exposure control or mA/KV adjustment according to patient size. FINDINGS: No intracranial hemorrhage, hydrocephalus or extra-axial fluid collection.Moderate general ized brain atrophy is present with moderate periventricular and deep white matter chronic microvascul ar ischemic changes.No areas of brain edema or evidence of midline shift. The paranasal sinuses and mastoids are clear. The calvarium is intact. IMPRESSION: No acute intracranial abnormality.
--- NOTE | 2021-01-07 13:51 | RAD REPORT ---
EXAM DESCRIPTION: CT - Stone Protocol - 01/07/2021 1:27 pm CLINICAL HISTORY: Flank pain. Abd pain;Flank pain COMPARISON: CT DISSECTION W WO CONTRAST dated 11/16/2012; Head C Spine Cap W Con dated 01/16/2019 TECHNIQUE: Axial images were obtained without oral or IV contrast. Lack of contrast limits solid org an and vascular assessment. The [id number] spans the entirety of the system partially obscuring uppermost abdomen and lung bases. Coronal reformatted images were obtained and reviewed. All CT scans are performed using dose optimization technique as appropriate and may include automated exposure control or mA/KV adjustment according to patient size. FINDINGS: The lower lung cleaning are emphysematous with atelectasis in both posterior lung bases. Imaged portions of the liver and spleen show no suspicious findings on non-contrast imaging. The panc reas and adrenal glands are normal. No pathologic lymphadenopathy in the abdomen or pelvis. Aortoilia c atherosclerosis is present. No urinary tract stones or obstructive uropathy. Prostate gland is significantly enlarged. Fat containing right inguinal hernia with clips present is noted, small in size. No bowel obstruction, free air, free fluid or abscess. Normal appendix noted.Prominent fecal retentio n in the rectum seen. The bones are demineralized with lumbosacral degenerative changes. IMPRESSION: No urinary tract stones or obstructive uropathy. Significant fecal retention is seen in the rectum. Significant enlargement of the prostate gland.
--- NOTE | 2021-01-07 14:13 | RAD REPORT ---
EXAM DESCRIPTION: RAD - Chest Single View - 01/07/2021 1:59 pm CLINICAL HISTORY: COUGH Chest pain. COMPARISON: Chest Pa And Lat (2 Views) dated 03/14/2020; Chest Pa And Lat (2 Views) dated 11/09/2019; C hest Pa And Lat (2 Views) dated 02/15/2016; CHEST PA AND LAT 2 VIEW dated 05/18/2013 FINDINGS: Portable technique limits examination quality. The lungs are grossly clear. The heart is normal in size. Tortuous thoracic aorta. No displaced fract ures. IMPRESSION: No acute intrathoracic process suspected.
[2021-01-07 14:50] LABS: Absolute Lymphocytes (CBC) 1.6 K/uL (0.7-4.9); Basophils % 0.6 % (0-1.3); Hematocrit 51.1 % (39.6-49.0); Lymphocytes % 9.7 % (15.3-44.8); MPV 8.7 fL (7.6-11.3); RBC Red Blood Cell Count 5.44 M/uL (4.33-5.43)
[2021-01-07 15:09] LABS: Protime INR 1.21
[2021-01-07] MEDS ORDERED: CEFTRIAXONE/SWI 1gm 1 GM/10 ML SYR ONE ×2 (15:39→22:05)
[2021-01-07] MEDS ORDERED: FAMOTIDINE 20 MG/2 ML VIAL IV ONE (15:39)
[2021-01-07] MEDS ORDERED: NA CHLORIDE 0.9% 1,000 ML ONE (15:39)
[2021-01-07 16:01] LABS: ALT/SGPT 35 U/L (12-78); Alkaline Phosphatase 92 U/L (45-117); BUN Blood Urea Nitrogen 36 mg/dL (7-18); Bicarbonate 28 mmol/L (21-32); Bilirubin Total 0.8 mg/dL (0.2-1.0); Glucose Level 93 mg/dL (74-106); Lipase 119 U/L (73-393); NT PRO-BNP 212 pg/mL (<450); Protein, Total 7.7 g/dL (6.4-8.2); Sodium Level 159 mmol/L (136-145); Troponin (Emerg Dept Use Only) < 0.02 ng/mL (0.0-0.045)
[2021-01-07 16:02] LABS: Bilirubin Direct 0.1 mg/dL (0-0.2); Potassium 3.7 mmol/L (3.5-5.1)
[2021-01-07 16:03] LABS: AST/SGOT 33 U/L (15-37); Magnesium 3.1 mg/dL (1.8-2.4)
[2021-01-07 16:25] LABS: Urine Blood 3+ (NEG); Urine Glucose NEGATIVE (NEG); Urine Protein 2+ (NEG); Urine Specific Gravity 1.025 (1.005-1.030); Urine pH 5.5 (5.0-7.0)
--- NOTE | 2021-01-07 16:28 | EDPHYS ---
Physician Documentation [facility] Name: Baldemar Key Jr Age: 89 yrs Sex: Male : 1930 Arrival Date: 01/07/2021 Time: 12:49 Bed 20 Private MD: RYAN Physician Troy Ellison HPI: 01/07 12:55 This 89 yrs old Male presents to ER via Unassigned with complaints of weak, jody dry and altered. 12:55 The patient presents with abdominal pain in the upper abdomen, in the lower abdomen. jody Onset: The symptoms/episode began/occurred 5 day(s) ago. weak, dry and altered , not eating and drinking. The patient presents with confusion, decreased mental status, decreased responsiveness, trouble concentrating. Onset: The symptoms/episode began/occurred 5 day(s) ago. Possible causes: head injury, low blood sugar, seizure, sepsis. Historical: - Allergies: 16:05 No Known Allergies; zb - Home Meds: 13:06 Coreg 6.25 mg Oral tab 1 tab 2 times per day [Active]; donepezil 10 mg Oral tab 1 tab zb twice a day [Active]; Folbic 2.5-25-2 mg Oral tab 1 tab 2 times per day [Active]; levothyroxine 75 mcg tab 1 tab once daily [Active]; memantine 28 mg Oral 1 cap once daily [Active]; Plavix 75 mg Oral tab 1 tab once daily [Active]; rosuvastatin 10 mg Oral tab 1 tab once daily [Active]; vitamin E 400 unit Oral cap daily [Active]; - PMHx: 13:06 Deaf; Dementia; enlarged prostate; High Cholesterol; Hypertension; Hypothyroidism; zb - Immunization history:: Adult Immunizations up to date. - Social history:: Smoking status: Patient denies any tobacco usage or history of. - Family history:: not pertinent. ROS: 13:00 Constitutional: Negative for fever, chills, and weight loss, Eyes: Negative for injury, jody pain, redness, and discharge, ENT: Negative for injury, pain, and discharge, Neck: Negative for injury, pain, and swelling, Cardiovascular: Negative for chest pain, palpitations, and edema, Respiratory: Negative for shortness of breath, cough, wheezing, and pleuritic chest pain, Abdomen/GI: Negative for abdominal pain, nausea, vomiting, diarrhea, and constipation, Back: Negative for injury and pain, : Negative for injury, bleeding, discharge, and swelling, MS/Extremity: Negative for injury and deformity, Skin: Negative for injury, rash, and discoloration, Psych: Negative for depression, anxiety, suicide ideation, homicidal ideation, and hallucinations, Allergy/Immunology: Negative for hives, rash, and allergies, Endocrine: Negative for neck swelling, polydipsia, polyuria, polyphagia, and marked weight changes, Hematologic/Lymphatic: Negative for swollen nodes, abnormal bleeding, and unusual bruising. 13:00 Neuro: Positive for altered mental status, weakness. Exam: 13:00 Head/Face: Normocephalic, atraumatic. Eyes: Pupils equal round and reactive to light, jody extra-ocular motions intact. Lids and lashes normal. Conjunctiva and sclera are non-icteric and not injected. Cornea within normal limits. Periorbital areas with no swelling, redness, or edema. Neck: Trachea midline, no thyromegaly or masses palpated, and no cervical lymphadenopathy. Supple, full range of motion without nuchal rigidity, or vertebral point tenderness. No Meningismus. Chest/axilla: Normal chest wall appearance and motion. Nontender with no deformity. No lesions are appreciated. Cardiovascular: Regular rate and rhythm with a normal S1 and S2. No gallops, murmurs, or rubs. Normal PMI, no JVD. No pulse deficits. Respiratory: Lungs have equal breath sounds bilaterally, clear to auscultation and percussion. No rales, rhonchi or wheezes noted. No increased work of breathing, no retractions or nasal flaring. Abdomen/GI: Soft, non-tender, with normal bowel sounds. No distension or tympany. No guarding or rebound. No evidence of tenderness throughout. Back: No spinal tenderness. No costovertebral tenderness. Full range of motion. Male : Normal genitalia with no discharge or lesions. Skin: Warm, dry with normal turgor. Normal color with no rashes, no lesions, and no evidence of cellulitis. MS/ Extremity: Pulses equal, no cyanosis. Neurovascular intact. Full, normal range of motion. Psych: Awake, alert, with orientation to person, place and time. Behavior, mood, and affect are within normal limits. 13:00 Constitutional: The patient appears lethargic. 13:00 Abdomen/GI: Inspection: abdomen appears normal, Bowel sounds: normal, Palpation: mild abdominal tenderness, in the right lower quadrant, Liver: is firm, Hernia: not appreciated. 13:00 Neuro: Orientation: Not oriented to person, place, time, situation, Mentation: slow to respond, confused, Memory: unable to test, Cranial nerves: is grossly normal based on the patient's age, no acute changes, Cerebellar function: unable to test, Motor: moves all fours, Sensation: appropriate no acute changes, Gait: not tested. Babinski testing is normal, seizure activity, is not displayed by the patient. 14:29 ECG was reviewed by the Attending Physician. jody Vital Signs: 13:02 BP 161 / 109; Pulse 87; Resp 16; Temp 97.2; Pulse Ox 99% on R/A; zb 15:11 BP 175 / 94; Pulse 86; Resp 21; Pulse Ox 100% on R/A; zb 15:43 BP 136 / 93; Pulse 80; Resp 20; Pulse Ox 100% on R/A; zb 19:38 BP 117 / 91; Pulse 81; Resp 18; Pulse Ox 100% on R/A; mg2 MDM: 12:49 Patient medically screened. [facility] 13:02 Differential Diagnosis altered mental status, sepsis. Differential Diagnosis: CVA, jody electrolyte abnormality, hypoglycemia, intracranial bleed, pneumonia, sepsis, TIA, UTI, volume depletion. Differential diagnosis: bowel obstruction, diverticulitis, gastritis, non-specific abd pain, pancreatitis, Peptic Ulcer Disease, Pyelonephritis, Ureterolithiasis, urinary tract infection. Data reviewed: vital signs, nurses notes, old medical records, lab test result(s), EKG, radiologic studies. Data interpreted: panel monitor: rate is 85 beats/min, rhythm is regular, Pulse oximetry: on room air is 95 %. Counseling: I had a detailed discussion with the patient and/or guardian regarding: the historical points, exam findings, and any diagnostic results supporting the discharge/admit diagnosis, lab results, radiology results, the need for further work-up and treatment in the hospital. 01/07 12:52 Order name: Basic Metabolic Panel; Complete Time: 16:23 jody 01/07 12:52 Order name: CBC with Diff; Complete Time: 15:34 [facility] 01/07 12:52 Order name: LFT's; Complete Time: 16:23 [facility] 01/07 12:52 Order name: Magnesium; Complete Time: 16:23 [facility] 01/07 12:52 Order name: NT PRO-BNP; Complete Time: 16:23 [facility] 01/07 12:52 Order name: PT-INR; Complete Time: 15:34 [facility] 01/07 12:52 Order name: Troponin (emerg Dept Use Only); Complete Time: 16:23 [facility] 01/07 12:52 Order name: Lipase; Complete Time: 16:23 [facility] 01/07 12:52 Order name: Urine Culture [facility] 01/07 12:52 Order name: Blood Culture Adult (2) [facility] 01/07 12:52 Order name: Lactate; Complete Time: 15:34 [facility] 01/07 15:10 Order name: Urine Dipstick--Ancillary (enter results); Complete Time: 16:28 01/07 16:08 Order name: SARS-COV-2 RT PCR; Complete Time: 16:10 [facility] 01/07 12:52 Order name: XRAY Chest (1 view); Complete Time: 14:28 [facility] 01/07 12:52 Order name: EKG; Complete Time: 12:53 [facility] 01/07 12:52 Order name: Cardiac monitoring; Complete Time: 15:10 [facility] 01/07 12:52 Order name: EKG - Nurse/Tech; Complete Time: 15:10 [facility] 01/07 12:52 Order name: IV Saline Lock; Complete Time: 15:10 [facility] 01/07 12:52 Order name: Labs collected and sent; Complete Time: 15:10 [facility] 01/07 12:52 Order name: CT Stone Protocol [facility] 01/07 12:52 Order name: CT Head Brain wo Cont [facility] 01/07 13:47 Order name: CT; Complete Time: 14:28 [facility] 01/07 13:51 Order name: CT; Complete Time: 14:28 [facility] 01/07 17:42 Order name: Lactate zb 01/07 19:00 Order name: Lactate Sepsis 2 HR Follow-up EDID 01/07 12:52 Order name: O2 Per Protocol; Complete Time: 15:10 [facility] 01/07 12:52 Order name: O2 Sat Monitoring; Complete Time: 15:10 [facility] 01/07 12:52 Order name: Urine Dipstick-Ancillary (obtain specimen); Complete Time: 15:20 jody 01/07 17:35 Order name: Labs - recollect needed: Lactate sepsis due; Complete Time: 17:42 iw EC:29 Rate is 82 beats/min. Rhythm is regular. QRS [place] is Normal. [place] interval is normal. QRS jody interval is prolonged at 82 msec. QT interval is normal. No Q waves. T waves are Normal. No ST changes noted. Clinical impression: NSR w/ Non-specific ST/T Changes and No evidence of ischemia. Interpreted by me. Reviewed by me. Administered Medications: 15:31 Drug: NS 0.9% 1000 ml Route: IV; Rate: 1 bolus; Site: right forearm; zb 16:20 Follow up: Response: No adverse reaction; IV Status: Completed infusion; IV Intake: zb 1000ml 16:32 Follow up: Response: No adverse reaction; IV Intake: 1000ml zb 15:31 Drug: Rocephin 1 grams Route: IV; Rate: per protocol; Site: right forearm; zb 16:31 Follow up: Response: No adverse reaction; IV Status: Completed infusion; IV Intake: 20mlzb 15:31 Drug: Pepcid 20 mg Route: IVP; Site: right forearm; zb 16:31 Follow up: Response: No adverse reaction zb 17:08 Drug: D5W 1000 ml Route: IV; Rate: 100 ml/hr; Site: right forearm; zb 19:58 Follow up: Response: No adverse reaction; IV Status: Infusion continued upon transfer zb Disposition: 01/07/21 16:27 Hospitalization ordered by Scarlett Payan for Inpatient Admission. Preliminary diagnosis are Dehydration, Dementia in other diseases classified elsewhere, Elevated white blood cell count, Constipation. - Bed requested for Telemetry/MedSurg (Inpatient). - Status is Inpatient Admission. mg2 - Condition is Fair. - Problem is new. - Symptoms have improved. Signatures: Dispatcher [employer] EDTroy Hernandez MD MD cha Williams, Irene, Kaylyn Upton RN, RN RN cg Gardose, Michele, RN RN mg2 Brown, Zipporah, RN RN znelson Corrections: (The following items were deleted from the chart) 15:40 13:00 CORONAVIRUS+MR.LAB.BRZ ordered. [facility] 19:30 16:27 Hospitalization Ordered by A Ora [facility] for Inpatient Admission. Preliminary cg diagnosis is Dehydration; Dementia in other diseases classified elsewhere; Elevated white blood cell count; Constipation. Bed requested for Telemetry/MedSurg (Inpatient). Status is Inpatient Admission. Condition is Fair. Problem is new. Symptoms have improved. jody 20:14 19:30 01/07/2021 16:27 Hospitalization Ordered by A Ora [facility] for Inpatient Admission. mg2 Preliminary diagnosis is Dehydration; Dementia in other diseases classified elsewhere; Elevated white blood cell count; Constipation. Bed requested for Telemetry/MedSurg (Inpatient). Status is Inpatient Admission. Condition is Fair. Problem is new. Symptoms have improved. cg
--- NOTE | 2021-01-07 16:28 | ER ---
Nurse's Notes [facility] Name: Baldemar Key Jr Age: 89 yrs Sex: Male : 1930 Arrival Date: 01/07/2021 Time: 12:49 Bed 20 Private MD: Diagnosis: Dehydration;Dementia in other diseases classified elsewhere;Elevated white blood cell count;Constipation Presentation: 01/07 13:02 Chief complaint: EMS states: Altered mental status coming from [facility] zb living. EMS states that patient normally aox1 and walks. but the last past 3 days. He has been urinating in random places and laying in bed. current alert only. Coronavirus screen: At this time, the client does not indicate any symptoms associated with coronavirus-19. Ebola Screen: No symptoms or risks identified at this time. Initial Sepsis Screen: Does the patient meet any 2 criteria? No. Patient's initial sepsis screen is negative. Does the patient have a suspected source of infection? No. Patient's initial sepsis screen is negative. Risk Assessment: Do you want to hurt yourself or someone else? Patient reports no desire to harm self or others. Onset of symptoms was January 04, 2021. 13:02 Acuity: MEDARDO 2 zb 13:02 Method Of Arrival: EMS: [facility] zb Triage Assessment: 15:36 General: Appears unkempt, emaciated, Behavior is agitated, altered. . Pain: Unable to zb use pain scale. Does not appear to understand pain scale. EENT: No signs and/or symptoms were reported regarding the EENT system. Neuro: Level of Consciousness is awake, confused, Oriented to none Medical Logistics Specialist are equal bilaterally Speech with expressive aphasia noted, Pupils are PERRLA. Cardiovascular: Patient's skin is warm and dry. Pulses are all present. Respiratory: Airway is patent Respiratory effort is even, unlabored, Respiratory pattern is regular, symmetrical, Breath sounds are clear bilaterally. GI: No signs and/or symptoms were reported involving the gastrointestinal system. : Urine is cloudy, blood tinged. Derm: Skin is fragile, is thin, with poor turgor Skin is dry, Skin is pale, Skin temperature is warm. Musculoskeletal: Range of motion: intact in all extremities. Historical: - Allergies: 16:05 No Known Allergies; zb - Home Meds: 13:06 Coreg 6.25 mg Oral tab 1 tab 2 times per day [Active]; donepezil 10 mg Oral tab 1 tab zb twice a day [Active]; Folbic 2.5-25-2 mg Oral tab 1 tab 2 times per day [Active]; levothyroxine 75 mcg tab 1 tab once daily [Active]; memantine 28 mg Oral 1 cap once daily [Active]; Plavix 75 mg Oral tab 1 tab once daily [Active]; rosuvastatin 10 mg Oral tab 1 tab once daily [Active]; vitamin E 400 unit Oral cap daily [Active]; - PMHx: 13:06 Deaf; Dementia; enlarged prostate; High Cholesterol; Hypertension; Hypothyroidism; zb - Immunization history:: Adult Immunizations up to date. - Social history:: Smoking status: Patient denies any tobacco usage or history of. - Family history:: not pertinent. Screenin:50 Abuse screen: Denies threats or abuse. Denies injuries from another. Nutritional zb screening: No deficits noted. Tuberculosis screening: No symptoms or risk factors identified. Fall Risk No fall in past 12 months (0 pts). Secondary diagnosis (15 points) dementia, IV access (20 points). Ambulatory Aid- Crutches/Cane/Walker (15 pts). Gait- Normal/Bed Rest/Wheelchair (0 pts) Mental Status- Overestimates/Forgets Limitations (15 pts.). Total Browning Fall Scale indicates High Risk Score (45 or more points). Fall prevention measures have been instituted. Side Rails Up X 2 Placed Close to Nursing Station Frequent Obs/Assessments Occuring Family Present and informed to notify staff if the need to leave the bedside As available patient and family educated on Fall Prevention Program and Strategies. Assessment: 14:00 Reassessment: ECP in bedside. zb 14:30 Reassessment: pt remains disoriented, family at bed. zb 17:40 Reassessment: Patient appears in no apparent distress at this time. teeth brushed. oral zb care given. patient attempting to speak. pt remains confused. Vital Signs: 13:02 BP 161 / 109; Pulse 87; Resp 16; Temp 97.2; Pulse Ox 99% on R/A; zb 15:11 BP 175 / 94; Pulse 86; Resp 21; Pulse Ox 100% on R/A; zb 15:43 BP 136 / 93; Pulse 80; Resp 20; Pulse Ox 100% on R/A; zb 19:38 BP 117 / 91; Pulse 81; Resp 18; Pulse Ox 100% on R/A; mg2 ED Course: 12:49 Patient arrived in ED. jody 12:49 Troy Ellison MD is Attending Physician. jody 13:02 Argentina Carpenter, WANG is Primary Nurse. zb 13:05 Triage completed. zb 13:25 EKG done, by ED staff, reviewed by Troy Ellison MD. Straight cath inserted, using zb sterile technique, 16 Fr. Specimen obtained. Patient admitted, IV remains in place. 13:50 Inserted saline lock: 22 gauge in right forearm, using aseptic technique. Blood zb collected. 13:59 XRAY Chest (1 view) In Process Unspecified. EDMS 15:20 Urine Dipstick--Ancillary (enter results) Sent. zb 15:24 Patient has correct armband on for positive identification. Bed in low position. Call mh5 light in reach. Side rails up X2. Adult w/ patient. Warm blanket given. shelter monitor on. Pulse ox on. NIBP on. 15:25 COVID swab sent to lab. [facility] 16:25 Scarlett Payan MD is Hospitalizing Provider. [facility] 18:00 Lactate Sent. zb 19:53 No provider procedures requiring assistance completed. zb 19:57 Arm band placed on. zb Administered Medications: 15:31 Drug: NS 0.9% 1000 ml Route: IV; Rate: 1 bolus; Site: right forearm; zb 16:20 Follow up: Response: No adverse reaction; IV Status: Completed infusion; IV Intake: zb 1000ml 16:32 Follow up: Response: No adverse reaction; IV Intake: 1000ml zb 15:31 Drug: Rocephin 1 grams Route: IV; Rate: per protocol; Site: right forearm; zb 16:31 Follow up: Response: No adverse reaction; IV Status: Completed infusion; IV Intake: 20mlzb 15:31 Drug: Pepcid 20 mg Route: IVP; Site: right forearm; zb 16:31 Follow up: Response: No adverse reaction zb 17:08 Drug: D5W 1000 ml Route: IV; Rate: 100 ml/hr; Site: right forearm; zb 19:58 Follow up: Response: No adverse reaction; IV Status: Infusion continued upon transfer zb Intake: 16:20 IV: 1000ml; Total: 1000ml. zb 16:31 IV: 20ml; Total: 1020ml. zb 16:32 IV: 1000ml; Total: 2020ml. zb Outcome: 16:27 Decision to Hospitalize by Provider. jody 19:55 Admitted to Med/surg room 216, with chart, Report called to WANG mosqueda znelson 19:55 Condition: stable 19:55 Instructed on the need for admit, Demonstrated understanding of instructions. 20:14 Patient left the ED. mg2 Signatures: Dispatcher [employer] EDMS Troy Ellison MD MD cha Martinez, [facility] Adonay Huston RN RN mg2 Brown, Zipporah, RN RN zb Corrections: (The following items were deleted from the chart) 15:40 15:23 CORONAVIRUS+MR.LAB.SUDEEPZ drawn and sent. znelson EDAK
[2021-01-07] MEDS ORDERED: D5W 1,000 ML IV ONE (17:21)
[2021-01-07] MEDS ORDERED: ONDANSETRON 4 MG/2 ML VIAL IV PRN (21:27)
[2021-01-07] MEDS ORDERED: ACETAMINOPHEN 500 MG TAB PO PRN (21:27)
[2021-01-07 21:59] VITALS: BMI 18.7
[2021-01-07] MEDS: CEFTRIAXONE/SWI 1gm 1 GM/10 ML SYR IV SCH (21:59)
[2021-01-07] MEDS ORDERED: CEFTRIAXONE 1 GM/NS 50 ML 1 GM/50 ML BAG IV SCH (22:00)
[2021-01-07] MEDS: FAMOTIDINE 20 MG/2 ML VIAL IV SCH (22:05)
[2021-01-07] MEDS: D5W 1,000 ML IV SCH (22:06)
[2021-01-08] MEDS: D5W 1,000 ML IV SCH ×3 (05:50→21:22)
[2021-01-08 06:06] LABS: Absolute Lymphocytes (CBC) 1.3 K/uL (0.7-4.9); Basophils % 0.3 % (0-1.3); Hematocrit 48.1 % (39.6-49.0); Lymphocytes % 8.8 % (15.3-44.8); MPV 8.6 fL (7.6-11.3); RBC Red Blood Cell Count 5.14 M/uL (4.33-5.43)
[2021-01-08 06:31] LABS: Potassium 3.2 mmol/L (3.5-5.1)
[2021-01-08] MEDS: FAMOTIDINE 20 MG/2 ML VIAL IV SCH ×2 (09:26→21:07)
[2021-01-08] MEDS: CEFTRIAXONE/SWI 1gm 1 GM/10 ML SYR IV SCH ×2 (09:26→21:03)
--- NOTE | 2021-01-09 01:51 | HP ---
Date of Admission: 01/08/2021 Chief Complaint: Weakness, altered mental status, not eating or drinking. History Of Present Illness: This is an 89-year-old pleasant male patient, living at [facility], who has late stage Alzheimer's disease, lately has not been eating and drinking, and feeling very weak, and was sent to emergency room yesterday with altered mental status. After he was evaluated, he was admitted to the hospital with urinary tract infection and volume depletion. When I saw him this morning, he was lying in bed, not in any distress, but not answering any questions. He was sleeping with his eyes closed and did not wake up on verbal commands. Allergies: NO KNOWN ALLERGIES. Medications: List reviewed. Review of Systems: ALEMITE OPERATOR: As mentioned above. Constitutional: As mentioned above. All other systems reviewed and negative. Past Medical History: Significant for Alzheimer's disease, which is late stage; hypothyroidism; hypertension; hyperlipidemia; coronary artery disease; diverticulosis; benign prostatic hypertrophy; high PSA; and osteoarthritis at multiple sites. Past Surgical History: Cataract surgery and ear surgery, coronary artery stent placement in LAD in 2005, hernia repair, and knee surgery. Family History: Significant for parents with coronary artery disease. Social History: Prior history of smoking, not at present time. Use of alcohol negative. Physical Examination: Vital Signs: Last temperature this morning 97, pulse 74, respiratory rate 20, blood pressure 135/90, oxygen saturation 100% on room air. Height 6 feet 3 inches, weight 150 pounds. His weight was 163 pounds when he was seen at office last time on April 12, 2020. When I saw him in April, he had already lost 15 pounds prior 9 months and now he has lost another 13 pounds in the last 9 months, so altogether he has lost close to 30 pounds in the last year and a half or so. General: Awake, alert, oriented, not in distress. HEENT: Head atraumatic, normocephalic. Conjunctivae nonerythematous. Sclerae white. Mouth, dry oral mucosa. Ears/Nose, no mass, lesion, discharge noted. Neck: Supple. No JVD, lymph nodes, bruit, thyromegaly noted. Lungs: Bilateral good equal air entry. Clear to auscultation. No rhonchi. No rales. Heart: Normal heart sounds. No murmur or gallop. Abdomen: Soft. Bowel sounds normal. No guarding, rigidity, tenderness, mass, hepatosplenomegaly, distention, or bruit noted. Extremities: No leg edema. No calf tenderness. Skin: No rash, ulcer, cellulitis. Lymphatics: No lymph node enlargement in neck, supraclavicular, infraclavicular region. Chest: Unremarkable. External Genitalia: Deferred. Rectal: Deferred. ALEMITE OPERATOR: The patient is not following any commands. Lying in bed, not in distress. Does not respond to any verbal commands. Laboratory Data: Yesterday, white count 16.4, hemoglobin 16.9, platelets 432. This morning, white count 15.2, hemoglobin 15.7, platelets 336. INR 1.21. Yesterday, sodium 159, potassium 3.7, chloride 124, bicarb 28, BUN 36, creatinine 1.18, glucose 93. Lactic acid 2.8. Liver function tests unremarkable. Troponin less than 0.02. Lipase 119. This morning, sodium 160, potassium 3.2, chloride 123, bicarb 32, BUN 32, creatinine 1.12, glucose 125. Urinalysis showed 3+ blood, 3+ esterase, 2+ protein. COVID-19 test negative. CAT scan of the abdomen per stone protocol, no evidence of kidney stone, significant fecal retention in the rectum and enlarged prostate. CAT scan of the head was negative for any acute intracranial changes. Chest x-ray negative for any acute intrathoracic changes. Impression: 1. Hypernatremia. 2. Hypokalemia. 3. Volume depletion. 4. Urinary tract infection. 5. Alzheimer's disease, late stage. 6. Coronary artery disease. 7. Hypertension. 8. Hyperlipidemia. 9. Hypothyroidism. 10. Diverticulosis. 11. Constipation. 12. Osteoarthritis, multiple sites. 13. Benign prostatic hypertrophy. Plan: Admit the patient to the hospital for further evaluation and management of this problem. The patient is appropriate for inpatient and is expected to spend 2 midnights in the hospital. After he was evaluated in the ER yesterday, he was admitted to the hospital, IV fluid D5W at 100 cc/hour was started and this morning after reviewing today's blood work results, I have increased the rate to 125 cc/hour. Rocephin 1 g every 12 hours will be continued for urinary tract infection. Urine culture result pending. Once we get the final report, then we will decide about culture specific antibiotic. We will repeat blood work tomorrow morning. Replace potassium per protocol. Hopefully by tomorrow, we should see improvement in the sodium level. I have requested speech therapy consultation tomorrow to evaluate the patient's swallowing and depending on that, we will be communicating with the patient's family member regarding advanced care planning including feeding tube, etc. We will also have discussion probably regarding hospice care. I will see him tomorrow for followup. SHAY/DORCAS Voice ID: [id number] MTDD
[2021-01-09] MEDS: MORPHINE 2 MG/ML SYR IV PRN (01:55)
[2021-01-09] MEDS ORDERED: NITROGLYCERIN 1 GM PKT TD ONE (06:27)
[2021-01-09] MEDS: D5W 1,000 ML IV SCH ×4 (07:31→23:43)
[2021-01-09 08:22] LABS: Absolute Lymphocytes (CBC) 1.7 K/uL (0.7-4.9); Basophils % 0.9 % (0-1.3); Hematocrit 45.5 % (39.6-49.0); Lymphocytes % 12.3 % (15.3-44.8); MPV 8.5 fL (7.6-11.3); RBC Red Blood Cell Count 4.87 M/uL (4.33-5.43)
[2021-01-09 09:01] LABS: Magnesium 2.8 mg/dL (1.8-2.4); Potassium 3.2 mmol/L (3.5-5.1)
[2021-01-09] MEDS: FAMOTIDINE 20 MG/2 ML VIAL IV SCH ×2 (09:21→21:36)
[2021-01-09] MEDS: CEFTRIAXONE/SWI 1gm 1 GM/10 ML SYR IV SCH ×2 (09:21→21:37)
[2021-01-09] MEDS: KCL 20 MEQ/100 mL IVPB 20 MEQ/100 ML BAG IV SCH ×2 (12:25→15:48)
[2021-01-09] MEDS: NITROGLYCERIN 1 GM PKT TD SCH ×3 (12:26→23:42)
--- NOTE | 2021-01-09 22:53 | PN ---
Date of Progress Note: 01/09/2021 Subjective: The patient was seen this morning for followup. No new complaints or problems reported by the nursing staff. The patient was lying in bed and remains unresponsive, does not follow any com mands except when I was calling him by his name, he opened his eyes, but then closed. He does not fo llow any other commands at all. Objective: General: Not in any respiratory distress. Vital Signs: Reviewed. HEENT: Unremarkable. Lungs: Clear to auscultation. Heart: Sounds normal. Abdomen: Soft. Bowel sounds normal. No guarding, rigidity, tenderness, or distention. Extremities: No leg edema. Laboratory Data: Reviewed. Impression: 1.Volume depletion. 2.Urinary tract infection. 3.Hypernatremia. 4.Hypokalemia. Plan: The patient's urine culture results came back. It is growing E coli. It is sensitive to mult iple antibiotic including current antibiotic that he is on, which is ceftriaxone. We will continue t hat. We will go ahead and continue IV fluid. Speech therapist has evaluated the patient today and g ave us that recommendation and diet, although will be started, we will see him tomorrow for followup. We will repeat blood work tomorrow. SHAY/MODL Voice ID: [id number] Report ID: [id number]
[2021-01-10] MEDS: MORPHINE 2 MG/ML SYR IV PRN (00:19)
[2021-01-10] MEDS: KCL 20 MEQ/100 mL IVPB 20 MEQ/100 ML BAG IV SCH ×2 (03:43→05:46)
[2021-01-10 05:50] LABS: Absolute Lymphocytes (CBC) 1.3 K/uL (0.7-4.9); Basophils % 0.6 % (0-1.3); Lymphocytes % 11.3 % (15.3-44.8); MPV 8.6 fL (7.6-11.3); RBC Red Blood Cell Count 4.49 M/uL (4.33-5.43)
[2021-01-10 06:05] LABS: Magnesium 2.5 mg/dL (1.8-2.4); Potassium 3.6 mmol/L (3.5-5.1)
[2021-01-10] MEDS: NITROGLYCERIN 1 GM PKT TD SCH ×3 (06:10→18:08)
[2021-01-10] MEDS: D5W 1,000 ML IV SCH ×2 (07:33→14:55)
[2021-01-10] MEDS: CEFTRIAXONE/SWI 1gm 1 GM/10 ML SYR IV SCH ×2 (08:44→20:46)
[2021-01-10] MEDS: FAMOTIDINE 20 MG/2 ML VIAL IV SCH ×2 (09:40→20:46)
[2021-01-11] MEDS: NITROGLYCERIN 1 GM PKT TD SCH ×2 (00:06→05:47)
[2021-01-11 03:53] VITALS: O2SAT 95
[2021-01-11] MEDS: D5W 1,000 ML IV SCH ×2 (04:03→10:13)
--- NOTE | 2021-01-11 07:02 | PN ---
Date of Progress Note: 01/10/2021 Subjective: The patient was seen this morning for followup. He was lying in bed, not in any distres s. Mental status was somewhat better as when I tried to talk to him, he open his eyes for longer per iod of time today and spotting. He was noted to be moving his extremities, but does not follow any v erbal commands, does not communicate, does not answer any questions. Not in any respiratory distress . Objective: Vital Signs: Reviewed. HEENT: Unremarkable. Lungs: Clear to auscultation. Heart: Sounds normal. Abdomen: Soft. Bowel sounds normal. No guarding, rigidity, tenderness, or distention. Extremities: No leg edema. Laboratory Data: White count 11.9, hemoglobin 13.9, platelets 285. Sodium level is 147. BUN and cr eatinine are normal. Impression: 1.Hypernatremia. 2.Volume depletion. 3.Urinary tract infection. 4.Alzheimer disease, end-stage. 5.Hypertension. Plan: We will continue IV fluid, but reduce rate. Continue current antibiotics, urine culture resul ts reviewed. We will go ahead and continue diet per order. The patient's oral intake of food is madelyn y minimal at best. I did call the patient's daughter and communicated with her all the details. Jennifer alec has informed me that the patient's also is having decline in her cognitive function and th ey both are out of town currently in [place], but they will be coming back to town within next day o r 2 days. I do not know what the patient's current baseline status is as I have not seen him in last 6 months, so I do not know if what we see today is return back to baseline or not. What I am concer sean about is with his end-stage, late stage Alzheimer disease with poor intake of oral food and liqui ds. He is at very high risk of having dehydration problem requiring recurrent hospital admissions an d unfortunately it is unavoidable given his current clinical condition is and only way to help avoid that is put the feeding tube for nutritional support and for hydration purpose. This details were di scussed with patient's family and that is patient's daughter today and she was also made aware that i f the family decides not to have the feeding tube, then my recommendation will be that upon discharge he should go on hospice care. After my discussion with the patient's daughter, she was advised to c ommunicate with the rest of the family and subsequently she did call my office to inform us that david naranjo has decided to go on hospice care and no feeding tube, so we will request consultation from Social Service to help make arrangements for hospice care and hospice diagnosis is Alzheimer disease, late stage. SHAY/MODL Voice ID: [id number] Report ID: [id number]
[2021-01-11 07:04] LABS: BUN Blood Urea Nitrogen 11 mg/dL (7-18); Bicarbonate 29 mmol/L (21-32); Glucose Level 93 mg/dL (74-106); Magnesium 2.4 mg/dL (1.8-2.4); Potassium 3.7 mmol/L (3.5-5.1); Sodium Level 143 mmol/L (136-145)
[2021-01-11] MEDS: CEFTRIAXONE/SWI 1gm 1 GM/10 ML SYR IV SCH (08:47)
[2021-01-11] MEDS: FAMOTIDINE 20 MG/2 ML VIAL IV SCH (09:00)
[2021-01-11 09:25] VITALS: BP 136/74; TEMP 96.5
--- NOTE | 2021-01-12 04:30 | DS ---
Date of Discharge: 01/11/2021 Disposition: Discharged to go to [facility] with hospice care. Physical Examination: HEENT: Unremarkable. Lungs: Clear to auscultation. Heart: Sounds normal. Abdomen: Soft. Bowel sounds normal. No guarding, rigidity, tenderness, or distention. Extremities: No leg edema. Laboratory Data: Last chemistry today, sodium 143, potassium 3.7, chloride 108, bicarb 29, BUN 11, c reatinine 0.76, glucose 93, magnesium 2.2. Discharge Medications And Instructions: 1.Continue all prior home medication. 2.Takes Levaquin 500 mg p.o. daily for 10 days. 3.The patient to be admitted to hospice care and hospice medical office administrator to take over the patient's care. 4.Hospice diagnosis is Alzheimer disease, late stage. Hospital Course: An 89-year-old male patient admitted to the hospital with weakness, altered mental status, not eating or drinking. Please see dictated H and P for more information. After the patient was evaluated in the emergency room, he was admitted to the hospital with urinary tract infection, h ypernatremia, and volume depletion. His urinalysis was abnormal, consistent with urinary tract infec tion. Urine culture and blood culture were done in the emergency room. He was started on empiric an tibiotics, ceftriaxone 1 g IV every 12 hours, which was continued throughout this hospital stay. His initial white count was elevated, which was 16.4, and his white count has normalized with help of ap propriate IV antibiotics. Urine culture came back growing E coli and it was sensitive to multiple an tibiotics including ceftriaxone that he was on and today his blood culture came back positive for E c dominga as well. The patient's volume depletion problem and hypernatremia problem have improved with IV fluid, which was D5W he was given during this hospitalization. Speech therapy was consulted for swal lowing evaluation and as per recommendation from speech therapist, he was started on pureed diet. Hi s oral intake of food and liquid is very poor. His overall prognosis is very poor. His overall stat us has improved to some extent, but still this morning when I saw him, he opened his eyes, was noted to have spontaneous movement of his upper or lower extremity, but he does not follow anything and frank s not talk to me, does not answer any questions. I did communicate with the patient's daughter. All the details were discussed with her and we discussed about option of either putting feeding tube lik e PEG tube placement or hospice care, and after communicating with family members, daughter informed us that they would like for the patient to start hospice care and they already started talking [facility] basis, so Social Service was consulted and today the patient was discharged to go back to [facility] with [facility]. Final Diagnoses: 1.Hypernatremia. 2.Hypokalemia. 3.Volume depletion. 4.Sepsis, organism Escherichia coli. 5.Urinary tract infection, organism Escherichia coli. 6.Alzheimer disease, end-stage/late stage. 7.Coronary artery disease. 8.Hypertension. 9.Hyperlipidemia. 10.Hypothyroidism. 11.Diverticulosis. 12.Constipation. 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 14.Benign prostatic hypertrophy. SHAY/MODL Voice ID: [id number] Report ID: [id number]
== END 2021-01-11 11:00 | disposition hospice, home (50) | DRG 872 ==
LOC: ER 12:42 → 2ND 16:32
PROVIDERS: ADMIT Internal Medicine; ATTEND Internal Medicine
DX: A41.51 Sepsis due to Escherichia coli [E. coli] (principal); N39.0 Urinary tract infection, site not specified; E87.0 Hyperosmolality and hypernatremia; G30.1 Alzheimer's disease with late onset; F02.80 Dementia in other diseases classified elsewhere, unspecified severity, without behavioral disturbance, psychotic disturbance, mood disturbance, and anxiety; I10 Essential (primary) hypertension; E86.0 Dehydration; E78.5 Hyperlipidemia, unspecified; I25.10 Atherosclerotic heart disease of native coronary artery without angina pectoris; E86.9 Volume depletion, unspecified; M19.90 Unspecified osteoarthritis, unspecified site; E87.6 Hypokalemia; E03.9 Hypothyroidism, unspecified; K59.00 Constipation, unspecified; K57.90 Diverticulosis of intestine, part unspecified, without perforation or abscess without bleeding; N40.0 Benign prostatic hyperplasia without lower urinary tract symptoms; Z79.890 Hormone replacement therapy; Z79.899 Other long term (current) drug therapy; Z79.02 Long term (current) use of antithrombotics/antiplatelets; Z95.5 Presence of coronary angioplasty implant and graft; Z20.822 Contact with and (suspected) exposure to COVID-19
CPT/HCPCS: 36415; 51702; 70450; 71045; 74176; 76377; 80048; 80076; 81003; 82947; 83605; 83690; 83735; 83880; 84132; 84484; 85025; 85610; 87040; 87077; 87086; 87088; 87186; 87205; 92610; 93005; 96361; 96365; 96375; 99285; J0696; J2270; J3480; J7030; U0003